=== PATIENT | male | born 1985 | race Two or more races ===

== ENCOUNTER 2024-07-12 22:07 | Emergency (ER) | payer MEDICAID, SELFPAY ==
[2024-07-12 22:07] VITALS: BMI 28.9
[2024-07-12 22:14] VITALS: BP 158/91; PULSE 85; RESP 20; TEMP 36.7; O2SAT 100
--- NOTE | 2024-07-12 22:27 | PD.EDRME ---
Rapid Medical Screening Exam RME Arrival date/time: 07/12/24 22:07 Chief Complaint: Urogenital-Male Time Seen by Provider: 07/12/24 22:14 Vital signs: Vital Signs Temperature 98.1 F 07/12/24 22:14 Pulse Rate 85 07/12/24 22:14 Respiratory Rate 20 07/12/24 22:14 Blood Pressure 158/91 H 07/12/24 22:14 Pulse Oximetry (%) 100 07/12/24 22:14 Oxygen Delivery Method Room Air 07/12/24 22:14 Vital signs reviewed by provider: Yes RME Narrative: 39-year-old male presents to the ED with a complaint of bilateral groin pain. He denies any fever or chills, dysuria or frequency, penile discharge or bleeding. He has had some associated low back pain. He denies nausea or vomiting. He has a history of epididymitis, multiple episodes in the past. He is unsure if he has swelling of his scrotum or testicles. Labs and ultrasound ordered. I have greeted and performed a focused initial assessment of this patient. A comprehensive ED assessment and evaluation of the patient, analysis of all test results, and completion of the medical decision making process will be conducted by additional ED providers.
--- NOTE | 2024-07-12 22:30 | XR_ITS ---
Examination: Testicular sonography complete TECHNIQUE: Arthur scale sonographic images testes, assess for arterial inflow venous outflow Doppler spectrum analysis color flow analysis Exam date and time: July 12, 2024 at 11:03 PM Comparison January 14, 2023 INDICATIONS: Intermittent testicular pain 2 years more severe today FINDINGS: Right testis 3.2 cm epididymis 5.4 cm Arterial Marx testicle. No testicular mass. Mild scrotal wall thickening 0.4 cm Left testis 3.3 cm epididymis 1.6 cm Arterial flow the testicle. No testicular mass Scrotal thickening 0.4 cm IMPRESSION: No testicular torsion or testicular mass Bilateral epididymitis
[2024-07-12] MEDS: KETOROLAC INJ 60 MG/2 ML VIAL 30 MG IM (23:26)
[2024-07-12 23:46] LABS: Basophils % (Auto) 0 % (0-2.5); Eosinophils % (Auto) 0 % (0-10); Hematocrit 41.2 % (41.0-53.0); Hemoglobin 14.2 g/dL (13.5-16.0); Immature Granulocytes % (Auto) 1 % (0-0); Immature Granulocytes Auto 0.06 Thou/mm3 (0.00-0.00); Lymphocytes # (Auto) 0.6 Thou/mm3 (1.0-4.8); Lymphocytes % (Auto) 5 % (10-50); Mean Corpuscular HGB Conc 34.5 g/dl (31.0-37.0); Mean Corpuscular Volume 90 fL (80-100); Monocytes # (Auto) 0.5 Thou/mm3 (0.0-0.8); Monocytes % (Auto) 5 % (0-12); Neutrophils # (Auto) 9.4 Thou/mm3 (1.8-7.7); Neutrophils % (Auto) 89 % (37-80); Nucleated Red Blood Cell % 0 /100 WBC (0); Platelet Count 198 Thou/mm3 (140-440); RDW Standard Deviation 40.4 fL (35.1-43.9); Red Blood Count 4.58 Miln/mm3 (4.50-5.90); White Blood Count 10.6 Thou/mm3 (3.8-10.6)
[2024-07-12 23:53] LABS: Collection Type, Urine Clean Catch; Squamous Epithelial Cell,Urine 0 /hpf (0-5)
[2024-07-13 00:01] LABS: Bilirubin,Urine Negative (Negative); Blood,Urine Negative (Negative); Clarity,Urine Clear (Clear/Hazy); Color,Urine Colorless (Lt Yel-Yel); Glucose, Urine Negative (Negative); Ketones,Urine Negative (Negative); Leukocyte Esterase,Urine Negative (Negative); Nitrite,Urine Negative (Negative); Protein,Urine Negative (Neg - Trace); RBC,Urine 1 /hpf (0-3); Specific Gravity,Urine 1.015 (1.001-1.035); Urobilinogen,Urine Negative mg/dL (0.0-1.0); WBC,Urine < 1 /hpf (0-5)
[2024-07-13 00:05] LABS: Alanine Aminotransferase 18 U/L (10-49); Albumin, Serum 4.5 gm/dL (3.5-5.0); Albumin/Globulin Ratio 1.6 (1.2-2.2); Alkaline Phosphatase 85 U/L (46-116); Anion Gap 7 (7-16); Aspartate Amino Transferase 20 U/L (0-34); BUN/Creatinine Ratio 12 Ratio (12-20); Bilirubin,Total 0.3 mg/dL (0.3-1.2); Blood Urea Nitrogen 12 mg/dL (9-23); Calcium 8.7 mg/dL (8.3-10.6); Calcium (Corrected) 8.7 mg/dL (8.5-10.1); Carbon Dioxide 25.8 mMol/L (20.0-31.0); Chloride 107 mMol/L (98-107); Globulin 2.8 gm/dL (2.3-3.5); Glucose 116 mg/dL (74-106); Osmolality,Calculated 280 (275-295); Sodium 140 mMol/L (136-145); Total Protein 7.3 gm/dL (5.7-8.2); eGFR > 60 See Note
[2024-07-13 00:35] VITALS: BP 139/83; PULSE 83; RESP 18; TEMP 36.7; O2SAT 97
--- NOTE | 2024-07-13 02:33 | EDNOTE_ITS ---
ED Male Genitalurinary RME/HPI General Chief complaint: Urogenital-Male Stated complaint: TESTICLE PAIN Time Seen by Provider: 07/12/24 22:14 Arrival date/time: 07/12/24 22:07 RME / HPI RME / HPI Narrative: 39-year-old male presents to the ED with a complaint of bilateral groin pain. He denies any fever or chills, dysuria or frequency, penile discharge or bleeding. He has had some associated low back pain. He denies nausea or vomit ing. He has a history of epididymitis, multiple episodes in the past. He is unsure if he has swelling of his scrotum or testicles. Labs and ultrasound ordered. I have greeted and performed a focused initial assessment of this patient. A comprehensive ED assessment and evaluation of the patient, analysis of all test results, and completion of the medical decision making process will be conducted by additional ED providers. Dr. Suárez?s Main ED Evaluation: 39 y/o male with a history of epididymitis multiple times in the past presents to ED BIB mother c/o testicular pain x 1 day. Patient also reports difficulty urinating. Per mother, patient was in so much pain that they were tempted to call EMS. Patient denies any abdominal pain, back pain, fever, chills, hematuria, abnormal discharge or any other associated symptoms. No known allergies. Related Data Previous Rx's ?Medication ?Instructions ?Recorded Hydrocodone/Acetaminophen * (NORCO 1 tab PO Q6H PRN pa in #10 tabs 03/13/14 5/325 *) Sulfamethoxazole/Trimethoprim DS * 1 tab PO BID 10 day s #0 tabs 03/13/14 (BACTRIM DS *) acetaminophen 500 mg tablet 1,000 mg (2 x 500 mg) PO Q 6H PRN 07/13/24 pain #30 tabs doxycycline monohydrate 100 mg 100 mg PO BID 7 days #1 4 caps 07/13/24 capsule ibuprofen 600 mg tablet 600 mg PO Q6H PRN pain #20 t abs 07/13/24 oxycodone 5 mg capsule 5 mg PO TID PRN pain #10 cap s 07/13/24 Allergies Allergy/AdvReac Type Severity Reaction Status Date / Time No Known Allergies Allergy Verified 01/14/23 14:29 Review of Systems Review of Systems Systems Reviewed: All systems reviewed, normal except as documented Past Medical History Past Medical History CARDIAC: Negative Cardiac Disorders RESPIRATORY: Negative Asthma GENITOURINARY: Negative Renal Disease ENDOCRINE: Negative Diabetes Mellitus Type 2 HEMATOLOGIC: Negative Sickle Cell Disease Social History SMOKING STATUS: Never smoker ED Exam Narrative Physical exam: GENERAL APPEARANCE: alert and oriented x 4, well-developed, well-nourished, no acute distress VITALS: All vitals were reviewed and the pulse ox is 98% on room air, which is normal according to my interpretation. HEENT: Normocephalic, atraumatic; pupils equal, round, reactive to light; EOMI; mucous membranes pink, moist; oropharynx clear NECK: Supple LUNGS: CTABL; no wheezes, no rales, no rhonchi HEART: Regular rate, regular rhythm; normal S1, S2; no murmurs ABDOMEN: non distended; normal BS; soft, no tenderness, no guarding, no rebound; no masses, no organomegaly, no hernia BACK: no CVA tenderness EXTREMITIES: atraumatic; no edema NEUROLOGIC: awake; alert and oriented x4; cranial nerves II-XII grossly intact; no focal sensory or motor deficits PSYCHIATRIC: appropriate mood and affect SKIN: warm, dry, normal color; no rashes Course Quality Measures none Orders Category Date Time Status Insert IV STAT Care 07/12/24 22:32 Completed US testicular Stat Exams 07/12/24 22:30 Completed CBC Stat Lab 07/12/24 23:30 Completed Comprehensive Metabolic Panel Stat Lab 07/12/24 23:30 Completed Urinalysis Stat Lab 07/12/24 23:49 Completed Urine Culture Stat Lab 07/12/24 23:49 Received Ketorolac Inj [Toradol Inj] Med 07/12/24 22:30 Discontinued 30 mg IM X1 ONE Vital Signs Vital signs: Vital Signs Temperature 98.1 F 07/12/24 22:14 Pulse Rate 85 07/12/24 22:14 Respiratory Rate 20 07/12/24 22:14 Blood Pressure 158/91 H 07/12/24 22:14 Pulse Oximetry (%) 100 07/12/24 22:14 Oxygen Delivery Method Room Air 07/12/24 22:14 Urogenital - Male MDM Narrative MDM Narrative:: Scribe Attestation: IDena, am scribing for and in the presence of Dr. Suárez. Provider Notation: Although this document has been carefully reviewed, there may still be some phonetic and other typographical errors.? These errors are purely grammatical due to imperfections in the software program and should not be construed in any way to? compromise the substance of the patient's medical care during this visit. Patient will be discharged and treated for Gonorrhea and Chlamydia presumptively. Patient data External records reviewed:: [facility] previous records (Reviewed prior ED records from 01/14/23. Patient was seen for Epididymitis.) Clinical information provided by:: patient and parent (Mother) Social determinants that could affect healthcare access:: none Patient has the following chronic illnesses:: None reported How is presenting disease/condition affected by chronic disease/condition?: no chronic disease Evaluation data The following diagnostics were reviewed and interpreted by me:: lab results and radiology exam(s) Lab and/or radiology exams considered but not ordered:: None Interpretation Summary: LABS UA and CBC is unremarkable per my interpretation. RADIOLOGY Testicular US: Patient: DORA WISDOM. Record#: [id number] Birthdate: 1985 Age/Sex: 39 / M Location: [facility] Attending Dr: Ordering Physician: Lisa Latif PA-C Date of Service: 07/12/24 Procedure(s): US testicular Accession Number(s): [id number] cc: Jitendra Dewye MD; Lisa Latif PA-C; Temporary Provider,ED ~ Examination: Testicular sonography complete TECHNIQUE: Arthur scale sonographic images testes, assess for arterial inflow venous outflow Doppler spectrum analysis color flow analysis Exam date and time: July 12, 2024 at 11:03 PM Comparison January 14, 2023 INDICATIONS: Intermittent testicular pain 2 years more severe today FINDINGS: Right testis 3.2 cm epididymis 5.4 cm Arterial Marx testicle. No testicular mass. Mild scrotal wall thickening 0.4 cm Left testis 3.3 cm epididymis 1.6 cm Arterial flow the testicle. No testicular mass Scrotal thickening 0.4 cm IMPRESSION: No testicular torsion or testicular mass Bilateral epididymitis Dictated By: Jitendra Dewey MD Signed By: <Electronically signed by Jitendra Dewey MD in OV> 07/12/24 3993 Medications / Prescriptions Medications or Prescriptions considered but not ordered:: None Medication administrations:: Medication Administration History Discontinued Medications Ketorolac Tromethamine (Ketorolac Inj 60 Mg/2 Ml Vial) 30 mg IM X1 ONE Stop: 07/12/24 22:31 Last Admin: 07/12/24 23:26 Dose: 30 mg Documented By: KF See above if any Consultations Consultation(s) initiated? (list below): No Diagnosis Urogenital Male Differential Diagnosis: urinary tract infection, urethritis, epididymitis, genital herpes simplex, prostatitis, acute retention of urine and inguinal hernia Most likely diagnosis given after review of the tests above:: See clinical impression below Admission Indicated Admission indicated?: not indicated Explain why admission is indicated or not indicated:: Patient has no emergent abnormalities in their studies and can be managed on an outpatient basis. Admission Request Was there a request for admission?: No Disposition Plan Disposition Plan: Discharge Discharge Attestation Discharge Attestation: The patient and all family members were given an opportunity to ask questions a nd understood the discharge instructions. Discharge instructions specifically effects, indications for sooner follow up or return to the emergency department, and the expected course of current diagnosis. Patient condition: Stable Discharge Plan Plan Patient Disposition: HOME (Self Care) Discharge Disposition comment: Stable for discharge home Patient condition on transfer: Stable Prescriptions/Referrals Prescriptions/Med Rec: New acetaminophen 500 mg tablet 1,000 mg PO Q6H PRN (Reason: pain) Qty: 30 0RF ibuprofen 600 mg tablet 600 mg PO Q6H PRN (Reason: pain) Qty: 20 0RF oxycodone 5 mg capsule 5 mg PO TID MDD 3 caps PRN (Reason: pain) Qty: 10 0RF doxycycline monohydrate 100 mg capsule 100 mg PO BID 7 Days Qty: 14 0RF No Action Hydrocodone/Acetaminophen * (NORCO 5/325 *) 1 TAB tablet 1 tab PO Q6H PRN (Reason: pain) Qty: 10 0RF Sulfamethoxazole/Trimethoprim DS * (BACTRIM DS *) 1 TAB tablet 1 tab PO BID 10 Days Qty: 0 0RF Referrals: [facility] [Provider Group] - In 1 week [facility] [employer] SALES REPRESENTATIVE,Carolyn Dejesus [employer] SALES REPRESENTATIVE [Primary Care Provider] - In 1 week Problem List Clinical Impression: Epididymitis Patient/Caregiver Discharge Instructions Discharge Activity: activity as tolerated Education Materials: Treating Epididymitis and Orchitis, What are Epididymitis and Orchitis?, ED Epididymitis Additional Instructions: Dora should follow-up with a particular kind of doctor called a urologist. This is a specialist with the testicles and with epididymitis. Please return to the emergency department if you have any worsening or any further medical problems and we will help you. Otherwise you should follow-up with your primary care doctor or in the [facility] care clinic within the next several days. There are multiple medications waiting for you at your pharmacy in [place]. One of them is an antibiotic called doxycycline. Please take this twice per day until they are completely gone even if you feel better before that. There will also be acetaminophen and ibuprofen. These are for pain. Please take these as directed. There will also be a small prescription for a medicine called oxycodone. You cannot drive after taking this medication. It may make you feel sleepy. Best taken right before bed. Print Language: Pashto Stand Alone Forms: Yolanda Award Info., Patient Portal Info Letter
[2024-07-13 02:39] VITALS: BP 131/88; PULSE 76; RESP 17; TEMP 36.6; O2SAT 98
== END 2024-07-13 02:42 | disposition home or self-care (01) ==
PROVIDERS: Physician Assistant; Emergency Provider Emergency Medicine; PCP Nurse Practitioner Family
DX: N45.1 Epididymitis (principal)
CPT/HCPCS: 36415; 76870; 80053; 81001; 85025; 87081; 87086; 96372; 99284; J1885